=== PATIENT | female | born 1970 | race African-American/Black ===

== ENCOUNTER 2017-01-18 08:24 | Day surgery (SDC) | payer OTHER ==
[2017-01-18] MEDS ORDERED: ASPIRIN EC 325 MG TAB PO ONE (08:28)
[2017-01-18] MEDS ORDERED: DIAZEPAM 5 MG TAB PO ONE (08:28)
[2017-01-18] MEDS ORDERED: methylPREDNISolone SOD SUCC 125 MG/2 ML VIAL IVP ONE (08:28)
[2017-01-18] MEDS ORDERED: NS 1,000 ML IV ONE (08:28)
[2017-01-18] MEDS ORDERED: FAMOTIDINE 20 MG/NACL 50 ML IV ONE (08:28)
[2017-01-18] MEDS ORDERED: FAMOTIDINE 20 MG/NACL/50 ML BAG IV ONE (08:42)
[2017-01-18] MEDS ORDERED: methylPREDNISolone SOD SUCC 125 MG/2 ML VIAL ONE (08:42)
--- NOTE | 2017-01-18 08:44 | CPEKG ---
Heart Rate: 61 RR Interval: 984 P-R Interval: 148 QRSD Interval: 68 QT Interval: 400 QTC Interval: 403 P Ambler: 80 QRS Ambler: 54 T Wave Ambler: 38 EKG Severity - NORMAL ECG - EKG Impression: SINUS RHYTHM Electronically Signed By: Carlton Aguila 18-Jan-2017 10:14:05
--- NOTE | 2017-01-18 08:55 | PDPROPOC ---
Sedation Plan of Care Sedation Plan of Care: vital signs stable, mental status noted, patient educated of risks, benefits, alternatives, patient can tolerate sedation ASA Classification: ASA 1 Planned drugs: fentanyl, midazolam Mallampati Score: Class 1 Mallampati Reference Image: Patient passed 3-3-2 rule?: Yes
[2017-01-18 08:56] LABS: % IMMATURE GRANULYOCYTES 0.5 % (0.0-1.1); ABSOLUTE IMMATURE GRANULOCYTES 0.02 10^3/uL (0.00-0.10); ADD DIFF? NO; ADD MORPH? NO; ADD SCAN? NO; ATYPICAL LYMPHOCYTE FLAG 20 (0-99); FRAGMENT RBC FLAG 0 (0-99); LEFT SHIFT FLG 0 (0-99); LIPEMIA HEMOLYSIS FLAG 80 (0-99); MEAN CELL HEMOGLOBIN CONCENTR. 32.4 g/dL (32.4-36.7); MEAN CELL VOLUME 86.2 fL (81.5-99.8); MEAN PLATELET VOLUME 9.4 fL (8.7-11.7); PLATELET CLUMPS FLAG 0 (0-99); PLATELET COUNT 296 10^3/uL (150-400); RED BLOOD CELL COUNT 4.29 10^6/uL (4.18-5.33)
--- NOTE | 2017-01-18 08:57 | PDHPUP ---
History & Physical Update H&P update statement: This history and physical update is based on an assessment of the patient which was completed after admission or registration (within 24 hours), but prior to the surgery/procedure. H&P update: H&P reviewed & patient examined, no change in patient's condition since H&P completed
[2017-01-18] MEDS ORDERED: fentaNYL 100 MCG/2 ML INJ ONE (08:59)
[2017-01-18] MEDS ORDERED: MIDAZOLAM 2 MG/2 ML VIAL ONE (08:59)
[2017-01-18] MEDS ORDERED: LIDOCAINE 1% 300 MG/30 ML SDV ONE (08:59)
[2017-01-18] MEDS ORDERED: IOPAMIDOL (ISOVUE-370) 150 ML BTL IV ONE (09:00)
[2017-01-18 09:09] LABS: INR 1.18 (0.83-1.16)
[2017-01-18 09:14] LABS: ANION GAP 11 mEq/L (8-16); CALCIUM 9.3 mg/dL (8.5-10.4); CARBON DIOXIDE 21 mEq/l (22-31); CHLORIDE 106 mEq/L (97-110); CHOLESTEROL 175 mg/dL (140-200); CHOLESTEROL/HDL RATIO 2.69 RATIO (1.00-4.44); CREATININE 0.8 mg/dL (0.6-1.0); GLOMERULAR FILTRATION RATE > 60; GLUCOSE 67 mg/dL (70-100); HIGH DENSITY LIPOPROTEIN 65 mg/dL (40-95); LDL/HDL RATIO 1.55 RATIO (1.00-3.22); LOW DENSITY LIPOPROTEIN 101 mg/dL (70-100); MAGNESIUM 1.7 mg/dL (1.6-2.3); NON-HIGH DENSITY LIPOPROTEIN 110 mg/dL (90-129); POTASSIUM 3.4 mEq/L (3.5-5.2); SODIUM 138 mEq/L (134-144); TRIGLYCERIDE 46 mg/dL (35-135); VERY LOW DENSITY LIPOPROTEINS 9 mg/dL (8-25)
[2017-01-18] MEDS ORDERED: NITROGLYCERIN 0.4 MG BTL SL PRN (10:03)
[2017-01-18] MEDS ORDERED: ATROPINE SULFATE 1 MG/10 ML SYR IVP PRN (10:03)
[2017-01-18] MEDS ORDERED: HYDROCODONE/APAP 5/325 TAB PO PRN (10:03)
[2017-01-18] MEDS ORDERED: ONDANSETRON 4 MG/2 ML VIAL IVP PRN (10:03)
[2017-01-18] MEDS ORDERED: OXYCODONE/APAP 5/325 TAB PO PRN (10:03)
[2017-01-18] MEDS ORDERED: ATROPINE SULFATE 1 MG/10 ML SYR ONE (10:04)
--- NOTE | 2017-01-18 10:28 | CPIP ---
[f rep st] INVASIVE CARDIAC PROCEDURE DATE OF PROCEDURE: 01/18/2017 PROCEDURE: 1. Coronary angiography. 2. Left ventriculography. INDICATION: 1. Chest pain. 2. Abnormal stress test that is intermediate risk. ACCESS: The patient was prepped and draped in sterile fashion. 1% lidocaine was used to anesthetize the right inguinal region. A 6-Kinyarwanda introducer sheath was placed selectively into the right commo n femoral artery via modified Seldinger technique. CORONARY ANGIOGRAPHY: A 6-Kinyarwanda JL4 was advanced to the left main coronary artery and images obtain ed. The left main coronary artery bifurcated into an LAD and circumflex coronary arteries. The left main coronary artery appeared normal. The left anterior descending coronary artery gave rise to 2 d iagonal branches. The left anterior descending coronary artery and its complement of diagonal branch es appeared normal. The circumflex coronary artery was a moderate-sized vessel. The circumflex tristian nary artery gave rise to 1 large branching OM artery. The circumflex coronary artery and its OM serafin ry appeared normal. A 6-Kinyarwanda JR4 was advanced to the right coronary artery and images obtained. T he right coronary artery was dominant. The right coronary artery appeared normal. LEFT VENTRICULOGRAPHY: A 6-Kinyarwanda pigtail catheter was advanced into the left ventricle and images o btained. The left ventricle was normal in size and had normal systolic function and estimated ejecti on fraction of 65%. COMPLICATIONS: None. CONCLUSIONS: 1. Normal coronary arteries. 2. Normal left ventricular size and systolic function. 3. We will search for noncardiac causes for the patient's symptoms of chest pain. /[id number]/MODL
== END 2017-01-18 14:45 | disposition home or self-care (01) ==
LOC: FCATH 08:24
PROVIDERS: ATTEND Internal Medicine Cardiovascular Disease
PROC: B2151ZZ Fluoroscopy of Left Heart using Low Osmolar Contrast (ICD-10-PCS; principal; 2017-01-18)
PROC: B2111ZZ Fluoroscopy of Multiple Coronary Arteries using Low Osmolar Contrast (ICD-10-PCS; principal; 2017-01-18)
PROC: 4A023N7 Measurement of Cardiac Sampling and Pressure, Left Heart, Percutaneous Approach (ICD-10-PCS; principal; 2017-01-18)
DX: R07.9 Chest pain, unspecified (principal); R94.39 Abnormal result of other cardiovascular function study
CPT/HCPCS: J0461; J1200; J1644; J2250; J3010; Q9967

== ENCOUNTER → 2017-03-19 | Outpatient (CLI) | payer OTHER | LOC: FIMAGING 09:21 | PROVIDERS: ATTEND Physician Assistant | DX: K21.9 Gastro-esophageal reflux disease without esophagitis (principal) ==

== ENCOUNTER → 2017-03-22 | Outpatient (CLI) | payer OTHER | LOC: CLAB 15:31 → EDSTATUS 15:44 → CIMAGING 15:45 | PROVIDERS: ATTEND Internal Medicine Pulmonary Disease | DX: R07.9 Chest pain, unspecified (principal); R06.00 Dyspnea, unspecified | CPT/HCPCS: 71020-PO ==